=== PATIENT | female | born 1960 | race Caucasian/White ===

== ENCOUNTER 2019-04-26 15:14 | Inpatient (IN) | payer OTHER ==
--- NOTE | 2019-04-26 15:22 | PDOC ---
Rapid Medical Evaluation Chief Complaint: Respiratory Distress Time Seen by Provider: 04/26/19 15:16 Medical Evaluation: Allergies Allergy/AdvReac Type Severity Reaction Status Date / Time No Known Allergies Allergy Verified 06/28/14 11:19 04/26/19 15:18 Pt c/o: sent by dr degroot for admitted for rrl pneumonia, finished abx friday , still sob, cough and rib pain, hx asthma Pt on brief exam: rhonchi to rll, 96 on room air pt ordered for: chest xray Pt to proceed to the ED Discharge Disposition - Diagnosis Cough - Discharge Dispostion Disposition: HOME Condition at time of disposition: Guarded - Referrals - Patient Instructions - Post Discharge Activity
[2019-04-26] MEDS ORDERED: ALBUTEROL SO4 2.5/IPRATROPIUM 0.5 INH SOL 3 ML VIAL.NEB. NEB ONE ×2 (17:03→17:44)
--- NOTE | 2019-04-26 17:03 | PDOC ---
History of Present Illness - General Chief Complaint: Respiratory Distress Stated Complaint: PNEUMONIA Time Seen by Provider: 04/26/19 15:16 - History of Present Illness Initial Comments: 04/26/19 17:10 Pt is a 58y/o female with asthma and iron deficiency who presents with cough for 1 week with intermittent productive greenish sputum. She completed a z-pack given to her by her PCP 2 days ago and started prednisone 2 days ago with no improvement. She also reports shortness of breath, chest pressure, cold sweats, b/l rib pain, headaches, weakness, loss of appetite, and nausea. She had fever yesterday 100.8. She denies wheezing, chest pain, or vomiting. She has been using her home albuterol nebulizer every 3 hours in addition to albuterol inhaler. She reports being around family with confirmed flu and RSV. She did not receive a flu shot this year. She has not received a pneumococcal vaccine. Past History - Past Medical History Allergies/Adverse Reactions: Allergies Allergy/AdvReac Type Severity Reaction Status Date / Time No Known Allergies Allergy Verified 04/26/19 17:10 Home Medications: Ambulatory Orders Albuterol Sulfate 0.042% [Ventolin 0.042% (Half-Strength)] 2 neb PO Q4H Salmeterol/Fluticasone [Advair 500Mcg/50Mcg] 1 inh PO BID 01/12/12 Ferrous Sulfate [Feosol] 325 mg PO TID #0 ud 01/17/12 Azithromycin 250 mg PO DAILY 04/26/19 Prednisone 40 mg PO DAILY 04/26/19 Asthma: Yes COPD: No HTN: No Other medical history: PNA - Surgical History Abdominal Surgery: Yes (GASTRIC BYPASS) Appendectomy: Yes Cholecystectomy: Yes - Immunization History Immunization Up to Date: No - Psycho Social/Smoking Cessation Hx Smoking Status: No Smoking History: Never smoked Have you smoked in the past 12 months: No Number of Cigarettes Smoked Daily: 0 Information on smoking cessation initiated: No Hx Alcohol Use: No Drug/Substance Use Hx: No Substance Use Type: None Hx Substance Use Treatment: No Review of Systems - Review of Systems Constitutional: Yes: Fever, Night Sweats Respiratory: Yes: Cough, Shortness of Breath. No: Wheezing Cardiac (ROS): No: Chest Pain ABD/GI: No: Nausea, Vomiting Musculoskeletal: Yes: Other (rib pain) Neurological: Yes: Headache. No: Dizziness *Physical Exam - Vital Signs Last Vital Signs Temp Pulse Resp BP Pulse Ox 98.3 F 98 H 16 157/91 96 04/26/19 15:18 04/26/19 15:18 04/26/19 15:18 04/26/19 15:18 04/26/19 15:18 - Physical Exam General Appearance: Yes: Nourished, Appropriately Dressed. No: Apparent Distress HEENT: positive: EOMI, SAMARIA Neck: positive: Trachea midline Respiratory/Chest: positive: Lungs Clear, Labored Respiration Cardiovascular: positive: Regular Rhythm, Regular Rate. negative: Murmur Gastrointestinal/Abdominal: positive: Normal Bowel Sounds. negative: Tender Musculoskeletal: positive: Other (b/l anterior lower rib pain) Neurologic: positive: Fully Oriented, Alert, Normal Mood/Affect ED Treatment Course - LABORATORY CBC & Chemistry Diagram: 04/26/19 18:20 04/26/19 18:20 Medical Decision Making - Medical Decision Making 04/26/19 18:00 Pt is a 58y/o female with asthma and iron deficiency who presents with cough for 1 week with intermittent productive greenish sputum. She completed a z-pack given to her by her PCP 2 days ago and started prednisone 2 days ago with no improvement. ddx: URI, viral bronchitis, CAP orders: duo-neb, solu-medrol 40mg, CBC, CMP, CXR 04/26/19 20:01 CXR- Since 04/23/19 questionable changes at right base have resolved, some atelectasis may still be present WBC 11.8, likely reactive from steroids ALK 150, no abdominal pain on exam Will admit per Dr. St for PNA. Discharge - Discharge Information Problems reviewed: Yes Clinical Impression/Diagnosis: Cough Condition: Stable - Admission Yes - Follow up/Referral - Patient Discharge Instructions - Post Discharge Activity
[2019-04-26] MEDS ORDERED: methylPREDNISolone NA SUCC 125 MG/2 ML VIAL IVPB STA (18:08)
--- NOTE | 2019-04-26 18:37 | PDOC ---
Documentation entered by Evelin Yeung SCRIBE, acting as scribe for Kaylen Monreal MD. Kaylen Monreal MD: This documentation has been prepared by the Gamal roblero Xhesika, SCRIBE, under my direction and personally reviewed by me in its entirety. I confirm that the documentation accurately reflects all work, treatment, procedures, and medical decision making performed by me. Attending Attestation - Resident Resident Name: Lisa Johnston - ED Attending Attestation I have performed the following: I have examined & evaluated the patient, The case was reviewed & discussed with the resident, I agree w/resident's findings & plan, Exceptions are as noted - HPI HPI: 04/26/19 17:53 The patient is a 58 year old female with a significant PMH of asthma and iron deficiency who presents to the emergency department from Dr. St office for possible PNA. Pt reports 1 week of URI symptoms, productive cough, rhinorrhea, fever and congestion. Patient states she completed z-pack given to her by her PCP 2 days ago and then started prednisone, with no improvement. Patient states she has been around family members that are flu positive. CXR here in the ED is unremarkable. Allergies: NKDA PCP: Rupesh Rutherford - Physicial Exam PE: 04/26/19 17:53 GENERAL: Awake, alert, and fully oriented, in no acute distress HEAD: No signs of trauma EYES: PERRLA, EOMI, sclera anicteric, conjunctiva clear ENT: + rhinorrhea. hearing grossly normal, nares patent, oropharynx clear without exudates. Moist mucosa NECK: Normal ROM, supple, no lymphadenopathy, JVD, or masses LUNGS: Breath sounds equal, clear to auscultation bilaterally. No wheezes, and no crackles HEART: Regular rate and rhythm, normal S1 and S2, no murmurs, rubs or gallops ABDOMEN: Soft, nontender, normoactive bowel sounds. No guarding, no rebound. No masses EXTREMITIES: Normal range of motion, no edema. No clubbing or cyanosis. No cords, erythema, or tenderness NEUROLOGICAL: Cranial nerves II through XII grossly intact. SKIN: Warm, Dry, normal turgor, no rashes or lesions noted. - Medical Decision Making 04/26/19 18:[address] is very concerned about this patient and wanted patient to be admitted for observation however at this time the only patients admitted to observation are telemetry patients who have had chest pain or syncope He said he wanted IV steroids which we will write for and she has received breathing treatments Her pulse ox is 96%, she is in no respiratory distress We will ADMIT med/surg Chest x-ray shows some atelectasis but no consolidations or infiltrates or effusions Impression URI, asthma 04/26/19 23:19
[2019-04-26] MEDS ORDERED: methylPREDNISolone NA SUCC 40 MG/1 ML VIAL ONE ×2 (18:42→23:03)
[2019-04-26] MEDS ORDERED: ACETAMINOPHEN 1000 MG/100 ML VIAL (NON FORMULARY) IVPB ONE (19:08)
[2019-04-26] MEDS ORDERED: ACETAMINOPHEN INJECTION 100 ML IVPB ONE (19:20)
[2019-04-26 19:22] LABS: BASO % 0.3 % (0-2.0); EOS % 0.1 % (0-4.5); HEMATOCRIT 38.2 % (32.4-45.2); HEMOGLOBIN 12.5 GM/dL (10.7-15.3); LYMPH % 8.2 % (8-40); MCH 29.7 pg (25.7-33.7); MCHC 32.7 g/dl (32.0-36.0); MEAN CELL VOLUME 90.9 fl (80-96); MEAN PLT VOLUME 8.5 fl (7.5-11.1); MONO % 5.6 % (3.8-10.2); NEUT % 85.8 % (42.8-82.8); PLATELET COUNT 337 K/MM3 (134-434); RDW 13.7 % (11.6-15.6); WHITE BLOOD COUNT 11.6 K/mm3 (4.0-10.0)
[2019-04-26] MEDS ORDERED: ALBUTEROL SO4 8 GM HFA INHALER IH PRN (19:35)
[2019-04-26] MEDS ORDERED: MONTELUKAST NA 10 MG TABLET PO ONE (19:35)
[2019-04-26] MEDS ORDERED: AZITHROMYCIN IVPB 500 MG/250 ML BAG IVPB ONE ×2 (19:39→19:48)
[2019-04-26 19:57] LABS: ALBUMIN 3.6 g/dl (3.4-5.0); BILIRUBIN,TOTAL 0.2 mg/dL (0.2-1); BLOOD UREA NITROGEN 16.7 mg/dL (7-18); CALCIUM 9.1 mg/dL (8.5-10.1); CREATININE 0.5 mg/dL (0.55-1.3); POTASSIUM 4.5 mmol/L (3.5-5.1); TOT PROT 7.3 g/dl (6.4-8.2)
--- NOTE | 2019-04-26 20:20 | HP ---
Admitting History and Physical - Admission Chief Complaint: pt presented to my office 2 days ago tx for asthma called me having exacerbations sent to er admitted observation tx iv History Source: Patient Limitations to Obtaining History: No Limitations - Past Medical History Pulmonary: Yes: Asthma, Pneumonia ...LMP: 12/22/11 ...: No - Past Surgical History Past Surgical History: Yes: Bariatric Surgery - Smoking History Smoking history: Never smoked Have you smoked in the past 12 months: No Aproximately how many cigarettes per day: 0 - Alcohol/Substance Use Hx Alcohol Use: No History of Substance Use: reports: None - Social History Usual Living Arrangement: Yes: With Spouse ADL: Independent History of Recent Travel: No Home Medications - Allergies Allergies/Adverse Reactions: Allergies Allergy/AdvReac Type Severity Reaction Status Date / Time No Known Allergies Allergy Verified 04/26/19 17:10 - Home Medications Home Medications: Ambulatory Orders Albuterol Sulfate 0.042% [Ventolin 0.042% (Half-Strength)] 2 neb PO Q4H Salmeterol/Fluticasone [Advair 500Mcg/50Mcg] 1 inh PO BID 01/12/12 Ferrous Sulfate [Feosol] 325 mg PO TID #0 ud 01/17/12 Azithromycin 250 mg PO DAILY 04/26/19 Prednisone 40 mg PO DAILY 04/26/19 Family Medical History Family History: Unremarkable Review of Systems - Review of Systems Constitutional: reports: No Symptoms Eyes: reports: No Symptoms HENT: reports: No Symptoms Neck: reports: No Symptoms Cardiovascular: reports: No Symptoms Respiratory: reports: Cough, SOB on Exertion, Wheezing Gastrointestinal: reports: No Symptoms Genitourinary: reports: No Symptoms Breasts: reports: No Symptoms Reported Musculoskeletal: reports: No Symptoms Integumentary: reports: No Symptoms Neurological: reports: No Symptoms Endocrine: reports: No Symptoms Hematology/Lymphatic: reports: No Symptoms Psychiatric: reports: No Symptoms Physical Examination Vital Signs: Vital Signs Temperature 98.3 F 04/26/19 15:18 Pulse Rate 98 H 04/26/19 15:18 Respiratory Rate 16 04/26/19 15:18 Blood Pressure 157/91 04/26/19 15:18 O2 Sat by Pulse Oximetry (%) 96 04/26/19 15:18 Constitutional: Yes: Mild Distress Eyes: Yes: WNL HENT: Yes: WNL Neck: Yes: WNL Cardiovascular: Yes: WNL Respiratory: Yes: Wheezes Gastrointestinal: Yes: WNL Breast(s): Yes: WNL Musculoskeletal: Yes: WNL Extremities: Yes: WNL Edema: No Peripheral Pulses WNL: Yes Integumentary: Yes: WNL Neurological: Yes: WNL ...Motor Strength: WNL Psychiatric: Yes: WNL Labs: CBC, BMP 04/26/19 18:20 04/26/19 18:20 Problem List - Problems (1) Inspiratory wheeze on examination Code(s): R06.2 - WHEEZING (2) Nocturnal cough with wheeze Code(s): R05 - COUGH; R06.2 - WHEEZING Assessment/Plan iv steroids pulm consult 02 tx inhakers neb tx aithromax iv peef flows
[2019-04-26] MEDS ORDERED: ZOLPIDEM TARTRATE 5 MG TABLET PO ONE (20:23)
[2019-04-26] MEDS: methylPREDNISolone NA SUCC 40 MG/1 ML VIAL IVPUSH SCH (23:08)
[2019-04-26] MEDS ORDERED: IBUPROFEN 400 MG TABLET (FP) PO ONE (23:13)
[2019-04-26] MEDS ORDERED: IBUPROFEN 600 MG TABLET (FP) PO ONE (23:47)
[2019-04-27] MEDS: FLUTICASONE/SALMETEROL 100 MCG/50 MCG DISKUS IH SCH ×3 (01:59→22:34)
[2019-04-27 05:36] VITALS: BMI 34.8
[2019-04-27] MEDS: IPRATROPIUM BR 0.02% 0.5 MG/2.5 ML VIAL.NEB. NEB PRN ×2 (05:40→07:30)
[2019-04-27] MEDS ORDERED: PT OWN MED DRAWER 7, Y5N ONE ×5 (09:48→12:41)
[2019-04-27] MEDS: methylPREDNISolone NA SUCC 40 MG/1 ML VIAL IVPUSH SCH ×2 (09:51→17:40)
--- NOTE | 2019-04-27 10:59 | CON.PULM ---
Consult Consult Specialty:: PULMONARY Referred by:: Dr St Reason for Consultation:: asthma - History of Present Illness Chief Complaint: shortness of breath History of Present Illness: 58yo female with h/o asthma since age 27, anemia who was admitted with worsening shortness of breath and cough. Reports multiple sick contacts at home. Cough productive of green sputum. Was given a course of azithromycin and prednisone as outpt. Reports a fever of 100.8 prior to admission. +short of breath and wheezing. Last hospitalized few years ago, never in ICU or intubated. Reports compliance with her inhalers. - History Source History Provided By: Patient, Medical Record Limitations to Obtaining History: No Limitations - Past Medical History Pulmonary: Yes: Asthma, Pneumonia ...LMP: 12/22/11 ...: No - Past Surgical History Past Surgical History: Yes: Bariatric Surgery - Alcohol/Substance Use Hx Alcohol Use: No History of Substance Use: reports: None - Smoking History Smoking history: Never smoked Have you smoked in the past 12 months: No Aproximately how many cigarettes per day: 0 - Social History ADL: Independent History of Recent Travel: No Home Medications - Allergies Allergies/Adverse Reactions: Allergies Allergy/AdvReac Type Severity Reaction Status Date / Time No Known Allergies Allergy Verified 04/26/19 17:10 - Home Medications Home Medications: Ambulatory Orders Albuterol Sulfate 0.042% [Ventolin 0.042% (Half-Strength)] 2 neb PO Q4H Salmeterol/Fluticasone [Advair 500Mcg/50Mcg] 1 inh PO BID 01/12/12 Ferrous Sulfate [Feosol] 325 mg PO TID #0 ud 01/17/12 Azithromycin 250 mg PO DAILY 04/26/19 Prednisone 40 mg PO DAILY 04/26/19 Review of Systems - Review of Systems Constitutional: reports: Chills, Fever, Malaise, Weakness Eyes: denies: Recent Change in Vision HENT: denies: Nasal Congestion, Throat Pain Neck: denies: Stiffness, Tenderness Cardiovascular: reports: Chest Pain, Shortness of Breath. denies: Palpitations Respiratory: reports: Cough, SOB on Exertion, Wheezing. denies: Hemoptysis Gastrointestinal: denies: Abdominal Pain, Nausea, Vomiting Genitourinary: denies: Dysuria, Hematuria Neurological: denies: Dizziness, Headache Endocrine: denies: Unexplained Weight Loss Physical Exam Vital Sings: Vital Signs Temperature 98 F 04/27/19 08:40 Pulse Rate 80 04/27/19 08:40 Respiratory Rate 20 04/27/19 08:40 Blood Pressure 139/76 04/27/19 08:40 O2 Sat by Pulse Oximetry (%) 97 04/27/19 05:03 Constitutional: Yes: Calm Eyes: Yes: Conjunctiva Clear, EOM Intact HENT: Yes: Atraumatic, Normocephalic Neck: Yes: Supple, Trachea Midline Cardiovascular: Yes: Regular Rate and Rhythm Respiratory: Yes: Rhonchi, Wheezes ...Clubbing: No Gastrointestinal: Yes: Normal Bowel Sounds, Soft Edema: No Neurological: Yes: Alert, Oriented Labs: CBC, BMP 04/26/19 18:20 04/26/19 18:20 Imaging - Results Chest X-ray: Report Reviewed, Image Reviewed (basilar atelectasis) Problem List - Problems (1) Acute asthma exacerbation Code(s): J45.901 - UNSPECIFIED ASTHMA WITH (ACUTE) EXACERBATION (2) Acute bronchitis Code(s): J20.9 - ACUTE BRONCHITIS, UNSPECIFIED Assessment/Plan Acute Asthma Exacerbation Acute Bronchitis - IV medrol - inhaled bronchodilators standing and PRN - azithromycin - singulair - cough suppressants - DVT prophylaxis Thank you for this consult Jim Dubose MD
[2019-04-27] MEDS ORDERED: ALBUTEROL SO4 0.083% IH SOL 2.5 MG/3 ML VIAL.NEB. NEB PRN (11:01)
--- NOTE | 2019-04-27 11:23 | PN ---
Progress Note, Physician Chief Complaint: moving air in lungs better more comphotable vss peekn not done?? - Current Medication List Current Medications: Active Medications Albuterol Sulfate (Ventolin 0.083% Nebulizer Soln -) 1 amp NEB Q4H PRN PRN Reason: SHORT OF BREATH/WHEEZING Albuterol/Ipratropium (Duoneb -) 1 amp NEB RQID [facility] Guaifenesin/Codeine Phosphate (Robitussin Ac -) 10 ml PO Q8H PRN PRN Reason: COUGH Azithromycin 250 mg/ Dextrose 250 mls @ 250 mls/hr IVPB DAILY [facility] Stop: 04/29/19 22:00 Methylprednisolone Sodium Succinate (Solu-Medrol -) 40 mg IVPUSH Q6H-IV [facility] Montelukast Sodium (Singulair -) 10 mg PO HS [facility] Fluticasone/Salmeterol (Advair 100mcg/50mcg -) 1 puff IH BID [facility] Last Admin: 04/27/19 01:59 Dose: Not Given - Objective Vital Signs: Vital Signs Temperature 98 F 04/27/19 08:40 Pulse Rate 80 04/27/19 08:40 Respiratory Rate 20 04/27/19 08:40 Blood Pressure 139/76 04/27/19 08:40 O2 Sat by Pulse Oximetry (%) 97 04/27/19 05:03 Constitutional: Yes: Calm Eyes: Yes: WNL HENT: Yes: WNL Neck: Yes: Tenderness Cardiovascular: Yes: WNL Respiratory: Yes: Diminished Gastrointestinal: Yes: WNL ...Rectal Exam: Yes: Deferred Genitourinary: Yes: WNL Musculoskeletal: Yes: WNL Extremities: Yes: WNL Edema: No Peripheral Pulses WNL: Yes Peripheral Pulses: Left Radial: 3+, Right Radial: 3+, Left Doralis Pedis: 3+, Right Dorsalis Pedis: 3+, Left Femoral: 3+, Right Femoral: 3+ Integumentary: Yes: WNL Neurological: Yes: WNL ...Motor Strength: WNL Psychiatric: Yes: WNL Labs: CBC, BMP 04/26/19 18:20 04/26/19 18:20 Problem List - Problems (1) Inspiratory wheeze on examination Code(s): R06.2 - WHEEZING (2) Nocturnal cough with wheeze Code(s): R05 - COUGH; R06.2 - WHEEZING Assessment/Plan mild to mod asthma reduce steroids tid do peek flows bedside cont all tx as is
[2019-04-27] MEDS: guaiFENesin/CODEINE 10 ML UNIT-DOSE CUPS PO PRN ×2 (11:40→22:32)
--- NOTE | 2019-04-27 12:00 | EKG ---
Test Reason : Blood Pressure : / mmHG Vent. Rate : 093 BPM Atrial Rate : 093 BPM P-R Int : 170 ms QRS Dur : 086 ms QT Int : 342 ms P-R-T Axes : 056 003 032 degrees QTc Int : 425 ms NORMAL SINUS RHYTHM NORMAL ECG Confirmed by MD THONY, LARS ([id number]) on 04/27/2019 11:59:59 AM Referred By: Confirmed By:LARS BHANDARI MD
[2019-04-27] MEDS: AZITHROMYCIN IVPB 250 MG in DEXTROSE 5%-WATER - 250 ML IVPB SCH (12:45)
[2019-04-27 13:10] LABS: BASO % 0.1 % (0-2.0); HEMATOCRIT 37.9 % (32.4-45.2); HEMOGLOBIN 12.2 GM/dL (10.7-15.3); LYMPH % 5.3 % (8-40); MCH 29.3 pg (25.7-33.7); MCHC 32.3 g/dl (32.0-36.0); MEAN CELL VOLUME 90.7 fl (80-96); MEAN PLT VOLUME 8.3 fl (7.5-11.1); MONO % 6.1 % (3.8-10.2); NEUT % 88.5 % (42.8-82.8); PLATELET COUNT 361 K/MM3 (134-434); RBC 4.18 M/mm3 (3.60-5.2); RDW 13.4 % (11.6-15.6); WHITE BLOOD COUNT 13.5 K/mm3 (4.0-10.0)
[2019-04-27 13:44] LABS: ALBUMIN 3.4 g/dl (3.4-5.0); BILIRUBIN,TOTAL 0.3 mg/dL (0.2-1); BLOOD UREA NITROGEN 17.6 mg/dL (7-18); CALCIUM 8.9 mg/dL (8.5-10.1); CREATININE 0.6 mg/dL (0.55-1.3); POTASSIUM 4.2 mmol/L (3.5-5.1); TOT PROT 6.8 g/dl (6.4-8.2)
[2019-04-27] MEDS ORDERED: methylPREDNISolone NA SUCC 40 MG/1 ML VIAL IVPUSH SCH (16:00)
[2019-04-27] MEDS: MONTELUKAST NA 10 MG TABLET PO SCH (22:32)
[2019-04-28] MEDS ORDERED: ALBUTEROL SO4 0.083% IH SOL 2.5 MG/3 ML VIAL.NEB. NEB PRN (00:10)
[2019-04-28] MEDS: ZOLPIDEM TARTRATE 5 MG TABLET PO SCH ×2 (01:30→21:27)
[2019-04-28] MEDS: methylPREDNISolone NA SUCC 40 MG/1 ML VIAL IVPUSH SCH ×3 (03:01→17:25)
[2019-04-28] MEDS: ALBUTEROL SO4 2.5/IPRATROPIUM 0.5 INH SOL 3 ML VIAL.NEB. NEB SCH ×4 (07:35→20:29)
[2019-04-28 08:30] LABS: BASO % 0.1 % (0-2.0); EOS % 0.1 % (0-4.5); HEMATOCRIT 37.2 % (32.4-45.2); HEMOGLOBIN 12.4 GM/dL (10.7-15.3); LYMPH % 8.8 % (8-40); MCH 29.8 pg (25.7-33.7); MCHC 33.3 g/dl (32.0-36.0); MEAN CELL VOLUME 89.4 fl (80-96); MEAN PLT VOLUME 7.9 fl (7.5-11.1); PLATELET COUNT 336 K/MM3 (134-434); RBC 4.16 M/mm3 (3.60-5.2); RDW 13.3 % (11.6-15.6)
[2019-04-28 09:17] LABS: BLOOD UREA NITROGEN 12.8 mg/dL (7-18); CALCIUM 9.4 mg/dL (8.5-10.1); CREATININE 0.6 mg/dL (0.55-1.3); POTASSIUM 4.8 mmol/L (3.5-5.1)
[2019-04-28] MEDS ORDERED: PT OWN MED DRAWER 7, Y5N ONE (09:22)
[2019-04-28] MEDS: guaiFENesin/CODEINE 10 ML UNIT-DOSE CUPS PO PRN ×2 (09:38→17:25)
[2019-04-28] MEDS: FLUTICASONE/SALMETEROL 100 MCG/50 MCG DISKUS IH SCH ×2 (09:38→21:28)
--- NOTE | 2019-04-28 10:12 | PN ---
Progress Note (short form) - Note Progress Note: PULMONARY Breathing better today but still with shortness of breath, chest tightness. c/o rib pain with coughing. Vital Signs Period Temp Pulse Resp BP Sys/Turner Pulse Ox Last 24 Hr 98.0 F-98.5 F 73-101 20-20 133-162/84-103 Gen: mildly tachypneic with speaking Heart: RRR Lung: scattered rhonchi, wheezes Abd: soft, nontender Ext: no edema CBC, BMP 04/28/19 07:35 04/28/19 07:35 Active Medications Albuterol Sulfate (Ventolin 0.083% Nebulizer Soln -) 1 amp NEB RQ4H PRN PRN Reason: SHORT OF BREATH/WHEEZING Albuterol/Ipratropium (Duoneb -) 1 amp NEB RQID DIANNE Last Admin: 04/28/19 07:35 Dose: 1 amp Guaifenesin/Codeine Phosphate (Robitussin Ac -) 10 ml PO Q8H PRN PRN Reason: COUGH Last Admin: 04/28/19 09:38 Dose: 10 ml Azithromycin 250 mg/ Dextrose 250 mls @ 250 mls/hr IVPB DAILY [facility] Stop: 04/29/19 22:00 Last Admin: 04/27/19 12:45 Dose: 250 mls/hr Methylprednisolone Sodium Succinate (Solu-Medrol -) 40 mg IVPUSH Q8H-IV DIANNE Last Admin: 04/28/19 09:38 Dose: 40 mg Montelukast Sodium (Singulair -) 10 mg PO HS [facility] Last Admin: 04/27/19 22:32 Dose: 10 mg Fluticasone/Salmeterol (Advair 100mcg/50mcg -) 1 puff IH BID [facility] Last Admin: 04/28/19 09:38 Dose: 1 puff Zolpidem Tartrate (Ambien -) 5 mg PO HS [facility] Last Admin: 04/28/19 01:30 Dose: 5 mg A/P Acute Asthma Exacerbation Acute Bronchitis - continue medrol at current dose - inhaled bronchodilators standing and PRN - azithromycin - singulair - cough suppressants - DVT prophylaxis Problem List - Problems (1) Acute asthma exacerbation Code(s): J45.901 - UNSPECIFIED ASTHMA WITH (ACUTE) EXACERBATION (2) Acute bronchitis Code(s): J20.9 - ACUTE BRONCHITIS, UNSPECIFIED
[2019-04-28] MEDS: AZITHROMYCIN IVPB 250 MG in DEXTROSE 5%-WATER - 250 ML IVPB SCH (10:17)
[2019-04-28] MEDS: ACETAMINOPHEN 325 MG TABLET (FP) PO PRN (10:38)
[2019-04-28 11:53] LABS: ANISOCYTOSIS 1+; MACROCYTOSIS 0; OVALOCYTE 1+; PLATELET ESTIMATE NORMAL
--- NOTE | 2019-04-28 13:28 | PN ---
Progress Note, Physician Chief Complaint: pt feels slightly better still sob at rest - Current Medication List Current Medications: Active Medications Acetaminophen (Tylenol -) 650 mg PO Q6H PRN PRN Reason: PAIN 1-8 Last Admin: 04/28/19 10:38 Dose: 650 mg Albuterol Sulfate (Ventolin 0.083% Nebulizer Soln -) 1 amp NEB RQ4H PRN PRN Reason: SHORT OF BREATH/WHEEZING Albuterol/Ipratropium (Duoneb -) 1 amp NEB RQID [facility] Last Admin: 04/28/19 07:35 Dose: 1 amp Guaifenesin/Codeine Phosphate (Robitussin Ac -) 10 ml PO Q8H PRN PRN Reason: COUGH Last Admin: 04/28/19 09:38 Dose: 10 ml Azithromycin 250 mg/ Dextrose 250 mls @ 250 mls/hr IVPB DAILY [facility] Stop: 04/29/19 22:00 Last Admin: 04/28/19 10:17 Dose: 250 mls/hr Lisinopril (Prinivil) 5 mg PO DAILY [facility] Methylprednisolone Sodium Succinate (Solu-Medrol -) 40 mg IVPUSH Q8H-IV [facility] Last Admin: 04/28/19 09:38 Dose: 40 mg Montelukast Sodium (Singulair -) 10 mg PO [facility] Last Admin: 04/27/19 22:32 Dose: 10 mg Fluticasone/Salmeterol (Advair 100mcg/50mcg -) 1 puff IH BID [facility] Last Admin: 04/28/19 09:38 Dose: 1 puff Zolpidem Tartrate (Ambien -) 5 mg PO [facility] Last Admin: 04/28/19 01:30 Dose: 5 mg - Objective Vital Signs: Vital Signs Temperature 97.8 F 04/28/19 11:55 Pulse Rate 83 04/28/19 11:55 Respiratory Rate 20 04/28/19 11:55 Blood Pressure 148/88 04/28/19 11:55 O2 Sat by Pulse Oximetry (%) 933 H 04/27/19 08:40 Constitutional: Yes: Well Nourished Eyes: Yes: WNL HENT: Yes: WNL Neck: Yes: WNL Cardiovascular: Yes: WNL Respiratory: Yes: Diminished Gastrointestinal: Yes: WNL ...Rectal Exam: Yes: Deferred Genitourinary: Yes: WNL Breast(s): Yes: WNL Musculoskeletal: Yes: WNL Extremities: Yes: WNL Edema: No Peripheral Pulses WNL: Yes Integumentary: Yes: WNL Neurological: Yes: WNL ...Motor Strength: WNL Psychiatric: Yes: WNL Labs: CBC, BMP 04/28/19 07:35 04/28/19 07:35 Problem List - Problems (1) Inspiratory wheeze on examination Code(s): R06.2 - WHEEZING (2) Nocturnal cough with wheeze Code(s): R05 - COUGH; R06.2 - WHEEZING Assessment/Plan not moving air as anticipated cont tx as is f/u w pulm peeks robitusin ac tlylenol pain lt side chest sed coghfing
--- NOTE | 2019-04-28 13:33 | PN ---
Progress Note, Physician Chief Complaint: feels better vss still sob ? at rest - Current Medication List Current Medications: Active Medications Acetaminophen (Tylenol -) 650 mg PO Q6H PRN PRN Reason: PAIN 1-8 Last Admin: 04/28/19 10:38 Dose: 650 mg Albuterol Sulfate (Ventolin 0.083% Nebulizer Soln -) 1 amp NEB RQ4H PRN PRN Reason: SHORT OF BREATH/WHEEZING Albuterol/Ipratropium (Duoneb -) 1 amp NEB RQID [facility] Last Admin: 04/28/19 07:35 Dose: 1 amp Guaifenesin/Codeine Phosphate (Robitussin Ac -) 10 ml PO Q8H PRN PRN Reason: COUGH Last Admin: 04/28/19 09:38 Dose: 10 ml Azithromycin 250 mg/ Dextrose 250 mls @ 250 mls/hr IVPB DAILY [facility] Stop: 04/29/19 22:00 Last Admin: 04/28/19 10:17 Dose: 250 mls/hr Lisinopril (Prinivil) 5 mg PO DAILY [facility] Methylprednisolone Sodium Succinate (Solu-Medrol -) 40 mg IVPUSH Q8H-IV [facility] Last Admin: 04/28/19 09:38 Dose: 40 mg Montelukast Sodium (Singulair -) 10 mg PO [facility] Last Admin: 04/27/19 22:32 Dose: 10 mg Fluticasone/Salmeterol (Advair 100mcg/50mcg -) 1 puff IH BID [facility] Last Admin: 04/28/19 09:38 Dose: 1 puff Zolpidem Tartrate (Ambien -) 5 mg PO [facility] Last Admin: 04/28/19 01:30 Dose: 5 mg - Objective Vital Signs: Vital Signs Temperature 97.8 F 04/28/19 11:55 Pulse Rate 83 04/28/19 11:55 Respiratory Rate 20 04/28/19 11:55 Blood Pressure 148/88 04/28/19 11:55 O2 Sat by Pulse Oximetry (%) 933 H 04/27/19 08:40 Constitutional: Yes: Well Nourished Eyes: Yes: WNL HENT: Yes: WNL Neck: Yes: WNL Cardiovascular: Yes: WNL Respiratory: Yes: Diminished Gastrointestinal: Yes: WNL Labs: CBC, BMP 04/28/19 07:35 04/28/19 07:35 Problem List - Problems (1) Inspiratory wheeze on examination Code(s): R06.2 - WHEEZING (2) Nocturnal cough with wheeze Code(s): R05 - COUGH; R06.2 - WHEEZING
[2019-04-28] MEDS ORDERED: MAG HYDROX/AL HYDROX/SIMETH 30 ML UNIT-DOSE CUP PO PRN (18:15)
[2019-04-28] MEDS: MONTELUKAST NA 10 MG TABLET PO SCH (21:27)
[2019-04-29] MEDS: guaiFENesin/CODEINE 10 ML UNIT-DOSE CUPS PO PRN ×3 (01:35→21:46)
[2019-04-29] MEDS: methylPREDNISolone NA SUCC 40 MG/1 ML VIAL IVPUSH SCH ×4 (01:35→21:45)
[2019-04-29] MEDS: ALBUTEROL SO4 2.5/IPRATROPIUM 0.5 INH SOL 3 ML VIAL.NEB. NEB SCH ×4 (07:41→20:14)
[2019-04-29 08:37] LABS: BASO % 0.1 % (0-2.0); HEMATOCRIT 39.3 % (32.4-45.2); LYMPH % 8.2 % (8-40); MCH 29.7 pg (25.7-33.7); MCHC 33.1 g/dl (32.0-36.0); MEAN CELL VOLUME 89.6 fl (80-96); MEAN PLT VOLUME 8.2 fl (7.5-11.1); MONO % 5.1 % (3.8-10.2); NEUT % 86.6 % (42.8-82.8); PLATELET COUNT 389 K/MM3 (134-434); RBC 4.39 M/mm3 (3.60-5.2); RDW 13.5 % (11.6-15.6); WHITE BLOOD COUNT 12.2 K/mm3 (4.0-10.0)
[2019-04-29 08:50] LABS: BLOOD UREA NITROGEN 17.6 mg/dL (7-18); CALCIUM 9.3 mg/dL (8.5-10.1); CREATININE 0.6 mg/dL (0.55-1.3); POTASSIUM 5.2 mmol/L (3.5-5.1)
[2019-04-29] MEDS: LISINOPRIL 5 MG TABLET (FP) PO SCH (09:41)
[2019-04-29] MEDS: AZITHROMYCIN IVPB 250 MG in DEXTROSE 5%-WATER - 250 ML IVPB SCH (09:46)
--- NOTE | 2019-04-29 09:55 | PN ---
Progress Note, Physician Chief Complaint: pt using neck assery muscles resp rate 38 min appears uncomfortable - Current Medication List Current Medications: Active Medications Acetaminophen (Tylenol -) 650 mg PO Q6H PRN PRN Reason: PAIN 1-8 Last Admin: 04/28/19 10:38 Dose: 650 mg Al Hydroxide/Mg Hydroxide (Mylanta Oral Suspension -) 30 ml PO Q6H PRN PRN Reason: GAS Albuterol Sulfate (Ventolin 0.083% Nebulizer Soln -) 1 amp NEB RQ4H PRN PRN Reason: SHORT OF BREATH/WHEEZING Albuterol/Ipratropium (Duoneb -) 1 amp NEB RQID [facility] Last Admin: 04/29/19 07:41 Dose: 1 amp Guaifenesin/Codeine Phosphate (Robitussin Ac -) 10 ml PO Q8H PRN PRN Reason: COUGH Last Admin: 04/29/19 01:35 Dose: 10 ml Azithromycin 250 mg/ Dextrose 250 mls @ 250 mls/hr IVPB DAILY [facility] Stop: 04/29/19 22:00 Last Admin: 04/29/19 09:46 Dose: 250 mls/hr Lisinopril (Prinivil) 5 mg PO DAILY [facility] Last Admin: 04/29/19 09:41 Dose: 5 mg Methylprednisolone Sodium Succinate (Solu-Medrol -) 40 mg IVPUSH Q8H-IV [facility] Last Admin: 04/29/19 09:41 Dose: 40 mg Montelukast Sodium (Singulair -) 10 mg PO HS [facility] Last Admin: 04/28/19 21:27 Dose: 10 mg Fluticasone/Salmeterol (Advair 100mcg/50mcg -) 1 puff IH BID [facility] Last Admin: 04/28/19 21:28 Dose: 1 puff Zolpidem Tartrate (Ambien -) 5 mg PO HS [facility] Last Admin: 04/28/19 21:27 Dose: 5 mg - Objective Vital Signs: Vital Signs Temperature 97.8 F 04/29/19 06:58 Pulse Rate 72 04/29/19 06:58 Respiratory Rate 20 04/29/19 06:58 Blood Pressure 159/79 04/29/19 06:58 O2 Sat by Pulse Oximetry (%) 96 04/28/19 20:39 Constitutional: Yes: Anxious Eyes: Yes: WNL HENT: Yes: WNL Neck: Yes: WNL Cardiovascular: Yes: WNL Respiratory: Yes: Diminished, SOB on Exertion, Tachypnea Gastrointestinal: Yes: WNL ...Rectal Exam: Yes: Deferred Genitourinary: Yes: WNL Breast(s): Yes: WNL Musculoskeletal: Yes: WNL Extremities: Yes: WNL Edema: No Peripheral Pulses WNL: Yes Integumentary: Yes: WNL Neurological: Yes: WNL ...Motor Strength: WNL Psychiatric: Yes: WNL Labs: CBC, BMP 04/29/19 07:25 04/29/19 07:25 Problem List - Problems (1) Inspiratory wheeze on examination Code(s): R06.2 - WHEEZING (2) Nocturnal cough with wheeze Code(s): R05 - COUGH; R06.2 - WHEEZING Assessment/Plan up steroids o 2 tx ? cont peeks dayly last 240 peek level
[2019-04-29] MEDS: FLUTICASONE/SALMETEROL 100 MCG/50 MCG DISKUS IH SCH ×2 (10:08→21:46)
--- NOTE | 2019-04-29 10:11 | PN ---
Progress Note (short form) - Note Progress Note: PULMONARY Feels worse today. Still with shortness of breath, chest tightness. + rib pain with coughing. Vital Signs Period Temp Pulse Resp BP Sys/Turner Pulse Ox Last 24 Hr 97.8 F-98.6 F 72-104 18-20 132-160/60-98 96 Gen: mildly tachypneic with speaking Heart: RRR Lung: scattered rhonchi, wheezes Abd: soft, nontender Ext: no edema CBC, BMP 04/29/19 07:25 04/29/19 07:25 Active Medications Acetaminophen (Tylenol -) 650 mg PO Q6H PRN PRN Reason: PAIN 1-8 Last Admin: 04/28/19 10:38 Dose: 650 mg Al Hydroxide/Mg Hydroxide (Mylanta Oral Suspension -) 30 ml PO Q6H PRN PRN Reason: GAS Albuterol Sulfate (Ventolin 0.083% Nebulizer Soln -) 1 amp NEB RQ4H PRN PRN Reason: SHORT OF BREATH/WHEEZING Albuterol/Ipratropium (Duoneb -) 1 amp NEB RQID [facility] Last Admin: 04/29/19 07:41 Dose: 1 amp Guaifenesin/Codeine Phosphate (Robitussin Ac -) 10 ml PO Q8H PRN PRN Reason: COUGH Last Admin: 04/29/19 10:09 Dose: 10 ml Azithromycin 250 mg/ Dextrose 250 mls @ 250 mls/hr IVPB DAILY [facility] Stop: 04/29/19 22:00 Last Admin: 04/29/19 09:46 Dose: 250 mls/hr Lisinopril (Prinivil) 5 mg PO DAILY [facility] Last Admin: 04/29/19 09:41 Dose: 5 mg Methylprednisolone Sodium Succinate (Solu-Medrol -) 60 mg IVPUSH Q6H-IV [facility] Montelukast Sodium (Singulair -) 10 mg PO HS [facility] Last Admin: 04/28/19 21:27 Dose: 10 mg Fluticasone/Salmeterol (Advair 100mcg/50mcg -) 1 puff IH BID [facility] Last Admin: 04/29/19 10:08 Dose: 1 puff Zolpidem Tartrate (Ambien -) 5 mg PO [facility] Last Admin: 04/28/19 21:27 Dose: 5 mg A/P Acute Asthma Exacerbation Acute Bronchitis - agree with increase in medrol - inhaled bronchodilators standing and PRN - azithromycin - singulair - cough suppressants - DVT prophylaxis Problem List - Problems (1) Acute asthma exacerbation Code(s): J45.901 - UNSPECIFIED ASTHMA WITH (ACUTE) EXACERBATION (2) Acute bronchitis Code(s): J20.9 - ACUTE BRONCHITIS, UNSPECIFIED
[2019-04-29 11:23] LABS: ANISOCYTOSIS 1+; MACROCYTOSIS 0; OVALOCYTE 1+; PLATELET ESTIMATE NORMAL; TARGET CELLS 1+; TEAR DROP CELLS 1+
[2019-04-29] MEDS: MONTELUKAST NA 10 MG TABLET PO SCH (21:45)
[2019-04-29] MEDS: ZOLPIDEM TARTRATE 5 MG TABLET PO SCH (21:46)
[2019-04-30] MEDS: methylPREDNISolone NA SUCC 40 MG/1 ML VIAL IVPUSH SCH ×4 (02:47→21:48)
[2019-04-30] MEDS: ALBUTEROL SO4 2.5/IPRATROPIUM 0.5 INH SOL 3 ML VIAL.NEB. NEB SCH ×4 (07:45→20:52)
[2019-04-30] MEDS ORDERED: PT OWN MED DRAWER 7, Y5N ONE ×2 (09:29→13:56)
[2019-04-30] MEDS: LISINOPRIL 5 MG TABLET (FP) PO SCH (09:38)
[2019-04-30] MEDS: FLUTICASONE/SALMETEROL 100 MCG/50 MCG DISKUS IH SCH ×2 (09:39→21:49)
[2019-04-30] MEDS: guaiFENesin/CODEINE 10 ML UNIT-DOSE CUPS PO PRN ×2 (14:10→22:20)
--- NOTE | 2019-04-30 14:28 | PN ---
Progress Note, Physician Chief Complaint: feels better peeks 240 no change moving air better vss - Current Medication List Current Medications: Active Medications Acetaminophen (Tylenol -) 650 mg PO Q6H PRN PRN Reason: PAIN 1-8 Last Admin: 04/28/19 10:38 Dose: 650 mg Al Hydroxide/Mg Hydroxide (Mylanta Oral Suspension -) 30 ml PO Q6H PRN PRN Reason: GAS Albuterol Sulfate (Ventolin 0.083% Nebulizer Soln -) 1 amp NEB RQ4H PRN PRN Reason: SHORT OF BREATH/WHEEZING Last Admin: 04/30/19 06:38 Dose: 1 amp Albuterol/Ipratropium (Duoneb -) 1 amp NEB RQID [facility] Last Admin: 04/30/19 11:37 Dose: 1 amp Guaifenesin/Codeine Phosphate (Robitussin Ac -) 10 ml PO Q8H PRN PRN Reason: COUGH Last Admin: 04/30/19 14:10 Dose: 10 ml Lisinopril (Prinivil) 5 mg PO DAILY [facility] Last Admin: 04/30/19 09:38 Dose: 5 mg Methylprednisolone Sodium Succinate (Solu-Medrol -) 60 mg IVPUSH Q6H-IV [facility] Last Admin: 04/30/19 14:10 Dose: 60 mg Montelukast Sodium (Singulair -) 10 mg PO HS [facility] Last Admin: 04/29/19 21:45 Dose: 10 mg Fluticasone/Salmeterol (Advair 100mcg/50mcg -) 1 puff IH BID [facility] Last Admin: 04/30/19 09:39 Dose: 1 puff Zolpidem Tartrate (Ambien -) 5 mg PO HS [facility] Last Admin: 04/29/19 21:46 Dose: 5 mg - Objective Vital Signs: Vital Signs Temperature 98.3 F 04/30/19 09:00 Pulse Rate 93 H 04/30/19 09:00 Respiratory Rate 22 H 04/30/19 09:00 Blood Pressure 164/97 04/30/19 09:00 O2 Sat by Pulse Oximetry (%) 93 L 04/30/19 09:00 Constitutional: Yes: Calm Eyes: Yes: WNL HENT: Yes: WNL Neck: Yes: WNL Cardiovascular: Yes: WNL Respiratory: Yes: Diminished, SOB on Exertion Gastrointestinal: Yes: WNL ...Rectal Exam: Yes: Deferred Genitourinary: Yes: WNL Breast(s): Yes: WNL Musculoskeletal: Yes: WNL Extremities: Yes: WNL Edema: No Peripheral Pulses WNL: Yes Integumentary: Yes: WNL Neurological: Yes: WNL ...Motor Strength: WNL Psychiatric: Yes: WNL Labs: CBC, BMP 04/29/19 07:25 04/29/19 07:25 Problem List - Problems (1) Inspiratory wheeze on examination Code(s): R06.2 - WHEEZING (2) Nocturnal cough with wheeze Code(s): R05 - COUGH; R06.2 - WHEEZING Assessment/Plan cont steroids as is cont 02 as is ambian for sleep
--- NOTE | 2019-04-30 14:38 | PN ---
Progress Note (short form) - Note Progress Note: PULMONARY\ SUBJECTIVE IMPROVEMENT VSS/AFEBRILE Gen: mildly tachypneic with speaking Heart: RRR Lung: scattered rhonchi, wheezes Abd: soft, nontender Ext: no edema CHART REVIEWED A/P Acute Asthma Exacerbation Acute Bronchitis - medrol - inhaled bronchodilators standing and PRN - azithromycin - singulair - cough suppressants - DVT prophylaxis Problem List - Problems (1) Acute asthma exacerbation Code(s): J45.901 - UNSPECIFIED ASTHMA WITH (ACUTE) EXACERBATION (2) Acute bronchitis Code(s): J20.9 - ACUTE BRONCHITIS, UNSPECIFIED Joseph PRIEST MD
[2019-04-30] MEDS: MONTELUKAST NA 10 MG TABLET PO SCH (21:49)
[2019-04-30] MEDS: ZOLPIDEM TARTRATE 5 MG TABLET PO SCH (21:49)
[2019-05-01] MEDS: methylPREDNISolone NA SUCC 40 MG/1 ML VIAL IVPUSH SCH ×4 (02:18→21:16)
[2019-05-01] MEDS: ALBUTEROL SO4 2.5/IPRATROPIUM 0.5 INH SOL 3 ML VIAL.NEB. NEB SCH ×4 (09:00→20:24)
[2019-05-01] MEDS: LISINOPRIL 5 MG TABLET (FP) PO SCH (09:05)
[2019-05-01] MEDS: guaiFENesin/CODEINE 10 ML UNIT-DOSE CUPS PO PRN ×2 (09:05→21:18)
[2019-05-01] MEDS: FLUTICASONE/SALMETEROL 100 MCG/50 MCG DISKUS IH SCH ×2 (09:06→21:19)
[2019-05-01] MEDS: POLYETHYLENE GLYCOL 3350 119 GM BTL PO SCH (09:08)
[2019-05-01] MEDS: ACETAMINOPHEN 325 MG TABLET (FP) PO PRN ×2 (09:18→21:18)
--- NOTE | 2019-05-01 12:08 | PN ---
Progress Note (short form) - Note Progress Note: PULMONARY Feels slightly better today but still with shortness of breath, chest tightness. Vital Signs Period Temp Pulse Resp BP Sys/Turner Pulse Ox Last 24 Hr 97.6 F-97.9 F 70-106 20-22 129-160/69-75 96 Gen: mildly tachypneic with speaking Heart: RRR Lung: scattered rhonchi, wheezes, poor air movement Abd: soft, nontender Ext: no edema CBC, BMP 04/29/19 07:25 04/29/19 07:25 Active Medications Acetaminophen (Tylenol -) 650 mg PO Q6H PRN PRN Reason: PAIN 1-8 Last Admin: 05/01/19 09:18 Dose: 650 mg Al Hydroxide/Mg Hydroxide (Mylanta Oral Suspension -) 30 ml PO Q6H PRN PRN Reason: GAS Albuterol Sulfate (Ventolin 0.083% Nebulizer Soln -) 1 amp NEB RQ4H PRN PRN Reason: SHORT OF BREATH/WHEEZING Last Admin: 04/30/19 06:38 Dose: 1 amp Albuterol/Ipratropium (Duoneb -) 1 amp NEB RQID [facility] Last Admin: 05/01/19 09:00 Dose: 1 amp Guaifenesin/Codeine Phosphate (Robitussin Ac -) 10 ml PO Q8H PRN PRN Reason: COUGH Last Admin: 05/01/19 09:05 Dose: 10 ml Lisinopril (Prinivil) 5 mg PO DAILY [facility] Last Admin: 05/01/19 09:05 Dose: 5 mg Methylprednisolone Sodium Succinate (Solu-Medrol -) 60 mg IVPUSH Q6H-IV [facility] Last Admin: 05/01/19 09:05 Dose: 60 mg Montelukast Sodium (Singulair -) 10 mg PO HS [facility] Last Admin: 04/30/19 21:49 Dose: 10 mg Polyethylene Glycol (Miralax (For Daily Use) -) 17 gm PO DAILY [facility] Last Admin: 05/01/19 09:08 Dose: 17 grams Fluticasone/Salmeterol (Advair 100mcg/50mcg -) 1 puff IH BID [facility] Last Admin: 05/01/19 09:06 Dose: 1 puff Zolpidem Tartrate (Ambien -) 5 mg PO HS [facility] Last Admin: 04/30/19 21:49 Dose: 5 mg A/P Acute Asthma Exacerbation Acute Bronchitis - continue medrol at current dose - inhaled bronchodilators standing and PRN - completed azithromycin - singulair - cough suppressants - DVT prophylaxis Problem List - Problems (1) Acute asthma exacerbation Code(s): J45.901 - UNSPECIFIED ASTHMA WITH (ACUTE) EXACERBATION (2) Acute bronchitis Code(s): J20.9 - ACUTE BRONCHITIS, UNSPECIFIED
--- NOTE | 2019-05-01 12:49 | PN ---
Progress Note, Physician Chief Complaint: feels better peeks still 240 - Current Medication List Current Medications: Active Medications Acetaminophen (Tylenol -) 650 mg PO Q6H PRN PRN Reason: PAIN 1-8 Last Admin: 05/01/19 09:18 Dose: 650 mg Al Hydroxide/Mg Hydroxide (Mylanta Oral Suspension -) 30 ml PO Q6H PRN PRN Reason: GAS Albuterol Sulfate (Ventolin 0.083% Nebulizer Soln -) 1 amp NEB RQ4H PRN PRN Reason: SHORT OF BREATH/WHEEZING Last Admin: 04/30/19 06:38 Dose: 1 amp Albuterol/Ipratropium (Duoneb -) 1 amp NEB RQID [facility] Last Admin: 05/01/19 09:00 Dose: 1 amp Guaifenesin/Codeine Phosphate (Robitussin Ac -) 10 ml PO Q8H PRN PRN Reason: COUGH Last Admin: 05/01/19 09:05 Dose: 10 ml Lisinopril (Prinivil) 5 mg PO DAILY [facility] Last Admin: 05/01/19 09:05 Dose: 5 mg Methylprednisolone Sodium Succinate (Solu-Medrol -) 60 mg IVPUSH Q6H-IV [facility] Last Admin: 05/01/19 09:05 Dose: 60 mg Montelukast Sodium (Singulair -) 10 mg PO HS [facility] Last Admin: 04/30/19 21:49 Dose: 10 mg Polyethylene Glycol (Miralax (For Daily Use) -) 17 gm PO DAILY [facility] Last Admin: 05/01/19 09:08 Dose: 17 grams Fluticasone/Salmeterol (Advair 100mcg/50mcg -) 1 puff IH BID [facility] Last Admin: 05/01/19 09:06 Dose: 1 puff Sodium Zirconium Cyclosilicate (Lokelma) 5 gm PO DAILY [facility] Zolpidem Tartrate (Ambien -) 5 mg PO HS [facility] Last Admin: 04/30/19 21:49 Dose: 5 mg - Objective Vital Signs: Vital Signs Temperature 97.6 F 05/01/19 06:32 Pulse Rate 70 05/01/19 06:32 Respiratory Rate 20 05/01/19 06:32 Blood Pressure 160/75 05/01/19 06:32 O2 Sat by Pulse Oximetry (%) 96 04/30/19 21:00 Constitutional: Yes: Calm Eyes: Yes: WNL HENT: Yes: WNL Neck: Yes: WNL Cardiovascular: Yes: WNL Respiratory: Yes: Other (better aeration) Gastrointestinal: Yes: WNL, Tenderness, Rebound Genitourinary: Yes: WNL Breast(s): Yes: WNL Musculoskeletal: Yes: WNL Extremities: Yes: WNL Edema: No Peripheral Pulses WNL: Yes Integumentary: Yes: WNL Neurological: Yes: WNL ...Motor Strength: WNL Psychiatric: Yes: WNL Labs: CBC, BMP 04/29/19 07:25 04/29/19 07:25 Problem List - Problems (1) Inspiratory wheeze on examination Code(s): R06.2 - WHEEZING (2) Nocturnal cough with wheeze Code(s): R05 - COUGH; R06.2 - WHEEZING Assessment/Plan coleisrael stat chk basic in am cont as is ? d/c on friday?
[2019-05-01] MEDS ORDERED: SODIUM ZIRCONIUM CYCLOSILICATE (LOKELMA) 5 GM PACKET PO ONE (13:00)
[2019-05-01] MEDS: MONTELUKAST NA 10 MG TABLET PO SCH (21:17)
[2019-05-01] MEDS: ZOLPIDEM TARTRATE 5 MG TABLET PO SCH (21:17)
[2019-05-02] MEDS: methylPREDNISolone NA SUCC 40 MG/1 ML VIAL IVPUSH SCH ×3 (02:37→17:52)
[2019-05-02] MEDS: ACETAMINOPHEN 325 MG TABLET (FP) PO PRN ×2 (03:15→22:04)
[2019-05-02] MEDS: guaiFENesin/CODEINE 10 ML UNIT-DOSE CUPS PO PRN ×3 (06:05→22:06)
[2019-05-02] MEDS: ALBUTEROL SO4 2.5/IPRATROPIUM 0.5 INH SOL 3 ML VIAL.NEB. NEB SCH ×4 (08:15→20:12)
[2019-05-02 08:44] LABS: BLOOD UREA NITROGEN 18.6 mg/dL (7-18); CALCIUM 8.3 mg/dL (8.5-10.1); CREATININE 0.6 mg/dL (0.55-1.3); POTASSIUM 4.4 mmol/L (3.5-5.1)
[2019-05-02] MEDS: LISINOPRIL 5 MG TABLET (FP) PO SCH (09:52)
[2019-05-02] MEDS: FLUTICASONE/SALMETEROL 100 MCG/50 MCG DISKUS IH SCH ×2 (09:53→22:02)
[2019-05-02] MEDS: POLYETHYLENE GLYCOL 3350 119 GM BTL PO SCH (09:53)
[2019-05-02] MEDS ORDERED: SODIUM ZIRCONIUM CYCLOSILICATE (LOKELMA) 5 GM PACKET PO SCH (10:00)
--- NOTE | 2019-05-02 10:43 | PN ---
Progress Note, Physician Chief Complaint: can not bring up phlem moving air better bp high today - Current Medication List Current Medications: Active Medications Acetaminophen (Tylenol -) 650 mg PO Q6H PRN PRN Reason: PAIN 1-8 Last Admin: 05/02/19 03:15 Dose: 650 mg Al Hydroxide/Mg Hydroxide (Mylanta Oral Suspension -) 30 ml PO Q6H PRN PRN Reason: GAS Last Admin: 05/02/19 06:23 Dose: 30 ml Albuterol Sulfate (Ventolin 0.083% Nebulizer Soln -) 1 amp NEB RQ4H PRN PRN Reason: SHORT OF BREATH/WHEEZING Last Admin: 04/30/19 06:38 Dose: 1 amp Albuterol/Ipratropium (Duoneb -) 1 amp NEB RQID [facility] Last Admin: 05/02/19 08:15 Dose: 1 amp Guaifenesin/Codeine Phosphate (Robitussin Ac -) 10 ml PO Q8H PRN PRN Reason: COUGH Last Admin: 05/02/19 06:05 Dose: 10 ml Lisinopril (Prinivil) 5 mg PO DAILY [facility] Last Admin: 05/02/19 09:52 Dose: 5 mg Methylprednisolone Sodium Succinate (Solu-Medrol -) 60 mg IVPUSH Q6H-IV [facility] Last Admin: 05/02/19 09:53 Dose: 60 mg Montelukast Sodium (Singulair -) 10 mg PO HS [facility] Last Admin: 05/01/19 21:17 Dose: 10 mg Polyethylene Glycol (Miralax (For Daily Use) -) 17 gm PO DAILY [facility] Last Admin: 05/02/19 09:53 Dose: 17 grams Fluticasone/Salmeterol (Advair 100mcg/50mcg -) 1 puff IH BID [facility] Last Admin: 05/02/19 09:53 Dose: 1 puff Zolpidem Tartrate (Ambien -) 5 mg PO HS [facility] Last Admin: 05/01/19 21:17 Dose: 5 mg - Objective Vital Signs: Vital Signs Temperature 97.6 F 05/02/19 07:43 Pulse Rate 72 05/02/19 07:43 Respiratory Rate 20 05/02/19 07:43 Blood Pressure 158/99 05/02/19 07:43 O2 Sat by Pulse Oximetry (%) 93 L 05/01/19 09:00 Constitutional: Yes: Mild Distress Eyes: Yes: WNL HENT: Yes: WNL Neck: Yes: WNL Cardiovascular: Yes: WNL Respiratory: Yes: Poor Air Entry Gastrointestinal: Yes: WNL ...Rectal Exam: Yes: Deferred, Sphincter Tone Normal Breast(s): Yes: WNL Musculoskeletal: Yes: WNL Extremities: Yes: WNL Edema: No Peripheral Pulses WNL: Yes Integumentary: Yes: WNL Neurological: Yes: WNL ...Motor Strength: WNL Psychiatric: Yes: WNL Labs: CBC, BMP 04/29/19 07:25 05/02/19 07:15 Problem List - Problems (1) Inspiratory wheeze on examination Code(s): R06.2 - WHEEZING (2) Nocturnal cough with wheeze Code(s): R05 - COUGH; R06.2 - WHEEZING Assessment/Plan although mucolitics not indicated for asthms will give as trial chest p/t cont neb tx
--- NOTE | 2019-05-02 13:00 | PN ---
Progress Note (short form) - Note Progress Note: PULMONARY Feels slightly better today. Chest looser. +cough with yellow sputum. Vital Signs Period Temp Pulse Resp BP Sys/Turner Pulse Ox Last 24 Hr 97.5 F-98.1 F 64-103 20-20 129-158/70-99 Gen: less tachypneic with speaking Heart: RRR Lung: scattered rhonchi, wheezes, better air movement Abd: soft, nontender Ext: no edema CBC, BMP 04/29/19 07:25 05/02/19 07:15 Active Medications Acetaminophen (Tylenol -) 650 mg PO Q6H PRN PRN Reason: PAIN 1-8 Last Admin: 05/02/19 03:15 Dose: 650 mg Al Hydroxide/Mg Hydroxide (Mylanta Oral Suspension -) 30 ml PO Q6H PRN PRN Reason: GAS Last Admin: 05/02/19 06:23 Dose: 30 ml Albuterol/Ipratropium (Duoneb -) 1 amp NEB RQID [facility] Last Admin: 05/02/19 08:15 Dose: 1 amp Guaifenesin (Mucinex -) 600 mg PO BID [facility] Guaifenesin/Codeine Phosphate (Robitussin Ac -) 10 ml PO Q8H PRN PRN Reason: COUGH Last Admin: 05/02/19 06:05 Dose: 10 ml Lisinopril (Prinivil) 10 mg PO DAILY [facility] Methylprednisolone Sodium Succinate (Solu-Medrol -) 60 mg IVPUSH Q6H-IV [facility] Last Admin: 05/02/19 09:53 Dose: 60 mg Montelukast Sodium (Singulair -) 10 mg PO [facility] Last Admin: 05/01/19 21:17 Dose: 10 mg Polyethylene Glycol (Miralax (For Daily Use) -) 17 gm PO DAILY [facility] Last Admin: 05/02/19 09:53 Dose: 17 grams Fluticasone/Salmeterol (Advair 100mcg/50mcg -) 1 puff IH BID [facility] Last Admin: 05/02/19 09:53 Dose: 1 puff Zolpidem Tartrate (Ambien -) 5 mg PO [facility] Last Admin: 05/01/19 21:17 Dose: 5 mg A/P Acute Asthma Exacerbation Acute Bronchitis - can decrease medrol to 40mg q8h - inhaled bronchodilators standing and PRN - completed azithromycin - singulair - cough suppressants - DVT prophylaxis Problem List - Problems (1) Acute asthma exacerbation Code(s): J45.901 - UNSPECIFIED ASTHMA WITH (ACUTE) EXACERBATION (2) Acute bronchitis Code(s): J20.9 - ACUTE BRONCHITIS, UNSPECIFIED
[2019-05-02] MEDS: ZOLPIDEM TARTRATE 5 MG TABLET PO SCH (22:04)
[2019-05-02] MEDS: guaiFENesin 600 MG TABLET.ER (FP) PO SCH (22:04)
[2019-05-02] MEDS: MONTELUKAST NA 10 MG TABLET PO SCH (22:04)
[2019-05-03] MEDS: methylPREDNISolone NA SUCC 40 MG/1 ML VIAL IVPUSH SCH ×3 (01:24→21:35)
[2019-05-03] MEDS: guaiFENesin/CODEINE 10 ML UNIT-DOSE CUPS PO PRN ×2 (06:40→22:54)
[2019-05-03] MEDS: ALBUTEROL SO4 2.5/IPRATROPIUM 0.5 INH SOL 3 ML VIAL.NEB. NEB SCH ×4 (07:42→20:50)
[2019-05-03 08:45] LABS: BASO % 0.2 % (0-2.0); EOS % 0.1 % (0-4.5); HEMATOCRIT 41.1 % (32.4-45.2); HEMOGLOBIN 13.4 GM/dL (10.7-15.3); LYMPH % 5.7 % (8-40); MCH 29.5 pg (25.7-33.7); MCHC 32.6 g/dl (32.0-36.0); MEAN CELL VOLUME 90.5 fl (80-96); MEAN PLT VOLUME 7.8 fl (7.5-11.1); MONO % 5.1 % (3.8-10.2); NEUT % 88.9 % (42.8-82.8); PLATELET COUNT 340 K/MM3 (134-434); RBC 4.54 M/mm3 (3.60-5.2); RDW 13.9 % (11.6-15.6); WHITE BLOOD COUNT 13.5 K/mm3 (4.0-10.0)
[2019-05-03 09:13] LABS: CALCIUM 8.6 mg/dL (8.5-10.1); CREATININE 0.6 mg/dL (0.55-1.3); POTASSIUM 4.7 mmol/L (3.5-5.1)
--- NOTE | 2019-05-03 09:38 | PN ---
Progress Note (short form) - Note Progress Note: Feels slightly better today. Cough is less but sputum is now harder to expectorate. No acute events overnight. Intake & Output 04/30/19 05/01/19 05/02/19 05/03/19 23:59 23:59 23:59 23:59 Intake Total 600 0 400 0 Balance 600 0 400 0 Last Vital Signs Temp Pulse Resp BP Pulse Ox 98.2 F 75 20 158/85 95 05/03/19 07:37 05/03/19 07:37 05/03/19 07:37 05/03/19 07:37 05/02/19 22:00 Active Medications Acetaminophen (Tylenol -) 650 mg PO Q6H PRN PRN Reason: PAIN 1-8 Last Admin: 05/02/19 22:04 Dose: 650 mg Al Hydroxide/Mg Hydroxide (Mylanta Oral Suspension -) 30 ml PO Q6H PRN PRN Reason: GAS Last Admin: 05/02/19 06:23 Dose: 30 ml Albuterol/Ipratropium (Duoneb -) 1 amp NEB RQID [facility] Last Admin: 05/03/19 07:42 Dose: 1 amp Guaifenesin (Mucinex -) 600 mg PO BID [facility] Last Admin: 05/02/19 22:04 Dose: 600 mg Guaifenesin/Codeine Phosphate (Robitussin Ac -) 10 ml PO Q8H PRN PRN Reason: COUGH Last Admin: 05/03/19 06:40 Dose: 10 ml Lisinopril (Prinivil) 10 mg PO DAILY [facility] Methylprednisolone Sodium Succinate (Solu-Medrol -) 40 mg IVPUSH Q12H [facility] Montelukast Sodium (Singulair -) 10 mg PO [facility] Last Admin: 05/02/19 22:04 Dose: 10 mg Polyethylene Glycol (Miralax (For Daily Use) -) 17 gm PO DAILY [facility] Last Admin: 05/02/19 09:53 Dose: 17 grams Fluticasone/Salmeterol (Advair 100mcg/50mcg -) 1 puff IH BID [facility] Last Admin: 05/02/19 22:02 Dose: 1 puff Zolpidem Tartrate (Ambien -) 5 mg PO [facility] Last Admin: 05/02/19 22:04 Dose: 5 mg Gen: NAD Heart: RRR Lung: scattered rhonchi, minimal expiratory wheezes Abd: soft, nontender Ext: no edema Laboratory Results - last 24 hr 05/03/19 05/03/19 08:05 08:05 WBC 13.5 H RBC 4.54 Hgb 13.4 Hct 41.1 MCV 90.5 MCH 29.5 MCHC 32.6 RDW 13.9 Plt Count 340 MPV 7.8 Absolute Neuts (auto) 12.0 H Neutrophils % 88.9 H Lymphocytes % 5.7 L D Monocytes % 5.1 Eosinophils % 0.1 D Basophils % 0.2 Nucleated RBC % 0 Sodium 138 Potassium 4.7 Chloride 101 Carbon Dioxide 31 Anion Gap 6 L BUN 19.0 H Creatinine 0.6 Est GFR (CKD-EPI)AfAm 115.63 Est GFR (CKD-EPI)NonAf 99.77 Random Glucose 137 H Calcium 8.6 Problem List - Problems (1) Acute asthma exacerbation Code(s): J45.901 - UNSPECIFIED ASTHMA WITH (ACUTE) EXACERBATION (2) Acute bronchitis Code(s): J20.9 - ACUTE BRONCHITIS, UNSPECIFIED A/P Acute Asthma Exacerbation Acute Bronchitis - Wean medrol to 40mg q12h: can hopefully change to Prednisone in AM - inhaled bronchodilators standing and PRN - completed azithromycin - singulair - cough suppressants - DVT prophylaxis - No smoking Dr Velazquez
[2019-05-03] MEDS: guaiFENesin 600 MG TABLET.ER (FP) PO SCH ×2 (09:47→21:34)
[2019-05-03] MEDS: LISINOPRIL 10 MG TABLET (FP) PO SCH (09:47)
[2019-05-03] MEDS: FLUTICASONE/SALMETEROL 100 MCG/50 MCG DISKUS IH SCH ×2 (09:47→21:34)
[2019-05-03] MEDS: ACETAMINOPHEN 325 MG TABLET (FP) PO PRN ×3 (09:55→21:35)
[2019-05-03] MEDS: POLYETHYLENE GLYCOL 3350 119 GM BTL PO SCH (09:56)
[2019-05-03 12:56] LABS: ANISOCYTOSIS 0; MACROCYTOSIS 0; PLATELET ESTIMATE NORMAL
--- NOTE | 2019-05-03 16:56 | PN ---
Progress Note, Physician History of Present Illness: peeks 300 today vss moving air more comfotable - Current Medication List Current Medications: Active Medications Acetaminophen (Tylenol -) 650 mg PO Q6H PRN PRN Reason: PAIN 1-8 Last Admin: 05/03/19 16:03 Dose: 650 mg Al Hydroxide/Mg Hydroxide (Mylanta Oral Suspension -) 30 ml PO Q6H PRN PRN Reason: GAS Last Admin: 05/02/19 06:23 Dose: 30 ml Albuterol/Ipratropium (Duoneb -) 1 amp NEB RQID [facility] Last Admin: 05/03/19 16:13 Dose: 1 amp Guaifenesin (Mucinex -) 600 mg PO BID [facility] Last Admin: 05/03/19 09:47 Dose: 600 mg Guaifenesin/Codeine Phosphate (Robitussin Ac -) 10 ml PO Q8H PRN PRN Reason: COUGH Last Admin: 05/03/19 06:40 Dose: 10 ml Lisinopril (Prinivil) 10 mg PO DAILY [facility] Last Admin: 05/03/19 09:47 Dose: 10 mg Methylprednisolone Sodium Succinate (Solu-Medrol -) 40 mg IVPUSH BID [facility] Last Admin: 05/03/19 09:55 Dose: 40 mg Montelukast Sodium (Singulair -) 10 mg PO HS [facility] Last Admin: 05/02/19 22:04 Dose: 10 mg Polyethylene Glycol (Miralax (For Daily Use) -) 17 gm PO DAILY [facility] Last Admin: 05/03/19 09:56 Dose: 17 grams Fluticasone/Salmeterol (Advair 100mcg/50mcg -) 1 puff IH BID [facility] Last Admin: 05/03/19 09:47 Dose: 1 puff Zolpidem Tartrate (Ambien -) 5 mg PO HS [facility] Last Admin: 05/02/19 22:04 Dose: 5 mg - Objective Vital Signs: Vital Signs Temperature 97.8 F 05/03/19 09:00 Pulse Rate 104 H 05/03/19 10:33 Respiratory Rate 22 H 05/03/19 10:00 Blood Pressure 151/87 05/03/19 09:00 O2 Sat by Pulse Oximetry (%) 93 L 05/03/19 10:33 Constitutional: Yes: Well Nourished Eyes: Yes: WNL HENT: Yes: WNL Neck: Yes: WNL Cardiovascular: Yes: WNL Respiratory: Yes: WNL Gastrointestinal: Yes: WNL ...Rectal Exam: Yes: Deferred, Sphincter Tone Normal Genitourinary: Yes: Urethral Discharge Breast(s): Yes: Gynecomastia Extremities: Yes: WNL Edema: No Peripheral Pulses WNL: Yes Integumentary: Yes: WNL Neurological: Yes: WNL ...Motor Strength: WNL Psychiatric: Yes: WNL Labs: CBC, BMP 05/03/19 08:05 05/03/19 08:05 Problem List - Problems (1) Inspiratory wheeze on examination Code(s): R06.2 - WHEEZING (2) Nocturnal cough with wheeze Code(s): R05 - COUGH; R06.2 - WHEEZING Assessment/Plan reduced steroids bid cont as is ? d/c in am
[2019-05-03] MEDS: MONTELUKAST NA 10 MG TABLET PO SCH (21:34)
[2019-05-03] MEDS: ZOLPIDEM TARTRATE 5 MG TABLET PO SCH (22:54)
[2019-05-04] MEDS: guaiFENesin/CODEINE 10 ML UNIT-DOSE CUPS PO PRN (06:31)
[2019-05-04] MEDS: guaiFENesin 600 MG TABLET.ER (FP) PO SCH (09:17)
[2019-05-04] MEDS: FLUTICASONE/SALMETEROL 100 MCG/50 MCG DISKUS IH SCH (09:18)
[2019-05-04] MEDS: LISINOPRIL 10 MG TABLET (FP) PO SCH (09:18)
[2019-05-04] MEDS: methylPREDNISolone NA SUCC 40 MG/1 ML VIAL IVPUSH SCH (09:19)
[2019-05-04] MEDS: POLYETHYLENE GLYCOL 3350 119 GM BTL PO SCH (09:28)
--- NOTE | 2019-05-04 10:19 | PN ---
Progress Note (short form) - Note Progress Note: Feels slightly better today. Cough is less. No acute events overnight. Peak flows have improved form 200's to around 300 Lowest saturation post ambulation 93%. Intake & Output 05/01/19 05/02/19 05/03/19 05/04/19 23:59 23:59 23:59 23:59 Intake Total 0 400 200 0 Balance 0 400 200 0 Weight 203 lb Last Vital Signs Temp Pulse Resp BP Pulse Ox 97.7 F 66 20 135/80 95 05/04/19 06:31 05/04/19 06:31 05/04/19 06:31 05/04/19 06:31 05/03/19 22:00 Active Medications Acetaminophen (Tylenol -) 650 mg PO Q6H PRN PRN Reason: PAIN 1-8 Last Admin: 05/03/19 21:35 Dose: 650 mg Al Hydroxide/Mg Hydroxide (Mylanta Oral Suspension -) 30 ml PO Q6H PRN PRN Reason: GAS Last Admin: 05/02/19 06:23 Dose: 30 ml Albuterol/Ipratropium (Duoneb -) 1 amp NEB RQID [facility] Last Admin: 05/03/19 20:50 Dose: 1 amp Guaifenesin (Mucinex -) 600 mg PO BID [facility] Last Admin: 05/04/19 09:17 Dose: 600 mg Guaifenesin/Codeine Phosphate (Robitussin Ac -) 10 ml PO Q8H PRN PRN Reason: COUGH Last Admin: 05/04/19 06:31 Dose: 10 ml Lisinopril (Prinivil) 10 mg PO DAILY [facility] Last Admin: 05/04/19 09:18 Dose: 10 mg Methylprednisolone Sodium Succinate (Solu-Medrol -) 40 mg IVPUSH BID [facility] Last Admin: 05/04/19 09:19 Dose: 40 mg Montelukast Sodium (Singulair -) 10 mg PO HS [facility] Last Admin: 05/03/19 21:34 Dose: 10 mg Polyethylene Glycol (Miralax (For Daily Use) -) 17 gm PO DAILY [facility] Last Admin: 05/04/19 09:28 Dose: 17 grams Fluticasone/Salmeterol (Advair 100mcg/50mcg -) 1 puff IH BID [facility] Last Admin: 05/04/19 09:18 Dose: 1 puff Zolpidem Tartrate (Ambien -) 5 mg PO HS [facility] Last Admin: 05/03/19 22:54 Dose: 5 mg Gen: NAD Heart: RRR Lung: scattered rhonchi, minimal expiratory wheezes Abd: soft, nontender Ext: no edema Laboratory Results - last 24 hr 05/03/19 08:05 Neutrophils % (Manual) 88.5 H Band Neutrophils % 0.0 Lymphocytes % (Manual) 5.8 L D Monocytes % (Manual) 1 L Eosinophils % (Manual) 0.0 Basophils % (Manual) 0.0 Myelocytes % (Man) 0 D Promyelocytes % (Man) 0 Blast Cells % (Manual) 0 Metamyelocytes 0 D Hypochromia 0 Platelet Estimate Normal Polychromasia 0 Poikilocytosis 0 Anisocytosis 0 Microcytosis 0 Macrocytosis 0 Stomatocytes 0 Problem List - Problems (1) Acute asthma exacerbation Code(s): J45.901 - UNSPECIFIED ASTHMA WITH (ACUTE) EXACERBATION (2) Acute bronchitis Code(s): J20.9 - ACUTE BRONCHITIS, UNSPECIFIED A/P Acute Asthma Exacerbation Acute Bronchitis - Can change to Prednisone taper if discharge is anticipated - completed azithromycin - No smoking Discharge meds: LAMA / LABA combination Selvin MARROQUINN Dr Velazquez
--- NOTE | 2019-05-04 10:37 | DS ---
Physical Examination Vital Signs: Vital Signs Temperature 97.7 F 05/04/19 06:31 Pulse Rate 66 05/04/19 06:31 Respiratory Rate 20 05/04/19 06:31 Blood Pressure 135/80 05/04/19 06:31 O2 Sat by Pulse Oximetry (%) 95 05/03/19 22:00 Constitutional: Yes: Calm Eyes: Yes: WNL HENT: Yes: WNL Neck: Yes: WNL Cardiovascular: Yes: WNL Respiratory: Yes: SOB on Exertion Gastrointestinal: Yes: WNL ...Rectal Exam: Yes: Deferred Renal/: Yes: WNL Breast(s): Yes: WNL Musculoskeletal: Yes: WNL Extremities: Yes: WNL Edema: No Peripheral Pulses WNL: Yes Integumentary: Yes: WNL Neurological: Yes: WNL ...Motor Strength: WNL Psychiatric: Yes: WNL Labs: CBC, BMP 05/03/19 08:05 05/03/19 08:05 Discharge Summary Problems reviewed: Yes Reason For Visit: COUGH Current Active Problems Acute asthma exacerbation (Acute) Acute bronchitis (Acute) Cough (Acute) Inspiratory wheeze on examination (Acute) Nocturnal cough with wheeze (Acute) Condition: Guarded - Instructions Diet, Activity, Other Instructions: appy w me friday 1130 am cont all tx as is at home steroids 50 mg daily x6 days did not get approved for o2 tx at home sat 93 percent d/c home now Referrals: Rupesh St MD [Primary Care Provider] - Disposition: HOME - Home Medications Comprehensive Discharge Medication List: Ambulatory Orders Albuterol Sulfate 0.042% [Ventolin 0.042% (Half-Strength)] 2 neb PO Q4H Salmeterol/Fluticasone [Advair 500Mcg/50Mcg] 1 inh PO BID 01/12/12 Ferrous Sulfate [Feosol] 325 mg PO TID #0 ud 01/17/12 Azithromycin 250 mg PO DAILY 04/26/19 Prednisone 40 mg PO DAILY 04/26/19
[2019-05-04] MEDS ORDERED: MAG HYDROX/AL HYDROX/SIMETH 30 ML UNIT-DOSE CUP PO PRN (13:01)
[2019-05-04 14:57] VITALS: BP 150/76; PULSE 81; TEMP 98
== END 2019-05-04 15:06 | disposition home or self-care (01) | DRG 202 ==
LOC: JER 15:14 → JERBED 21:25 → J8W 04-27 04:49
PROVIDERS: ADMIT Family Medicine; ATTEND Family Medicine
DX: J45.901 Unspecified asthma with (acute) exacerbation (principal); J98.11 Atelectasis; J20.9 Acute bronchitis, unspecified; R05 Cough
CPT/HCPCS: 36415; 71046-TC-FY; 80048; 80053; 85025; 87804; 93005; 93010; 94150; 94640; 94761; 99283-25; J0131